=== PATIENT | male | born 1970 | race Two or more races ===

== ENCOUNTER 2017-01-05 07:45 | Day surgery (SDC) | payer OTHER ==
[~2017-01-05 07:45] MED LIST: FENTANYL 250 MCG/5 ML AMP IV PRN; LACTATED RINGERS 1,000 ML IV SCH; MIDAZOLAM HCL 5 MG/5 ML VIAL IV PRN
[2017-01-05] MEDS ORDERED: IV START KIT ONE (07:50)
[2017-01-05] MEDS ORDERED: LACTATED RINGERS 1,000 ML ONE (07:50)
[2017-01-05] MEDS ORDERED: MIDAZOLAM HCL 5 MG/5 ML VIAL ONE (08:17)
[2017-01-05] MEDS ORDERED: FENTANYL 250 MCG/5 ML AMP ONE (08:18)
== END 2017-01-05 09:06 | disposition home or self-care (01) ==
LOC: SDC 07:45
PROVIDERS: ATTEND Internal Medicine Gastroenterology
PROC: 0DJD8ZZ Inspection of Lower Intestinal Tract, Via Natural or Artificial Opening Endoscopic (ICD-10-PCS; principal; 2017-01-05)
DX: D50.9 Iron deficiency anemia, unspecified (principal)